=== PATIENT | male | born 1965 | race Caucasian/White ===

== ENCOUNTER 2019-08-11 17:35 | Observation (INO) ==
--- OUTSIDE RECORDS SUMMARY | 2019-08-11 17:37 | External Medical Summary | Continuity of Care Document ---
:1965 Author Name aPrk Almendarez Address Unavailable Unavailable , Care Team Providers Name Role Phone Unavailable Unavailable Unavailable Moustapha Almendarez, IDaxa Unavailable [email or web address] TALORENRobin Unavailable Unavailable Unavailable Unavailable Unavailable Problems Ureteral stone (592.1) (N20.1) Bilateral kidney stones (592.0) (N20.0) Esophageal reflux (530.81) (K21.9) Hypertension (401.9) (I10) Allergies and Adverse Reactions No Known Drug Allergies (Allergy) Medications Cetirizine HCl Erickson DICKENS Refills: 0 Lisinopril 20 MG Oral Tablet , M.D. Refills: 0 Omeprazole 20 MG Oral Tablet Delayed Release , M.DDaxa Refills: 0 oxyCODONE-Acetaminophen 5-325 MG Oral Tablet , M.D. Refills: 0 Potassium Citrate ER 10 MEQ (1080 MG) Or al Tablet Extended Release; TAKE 1 TABLET TWICE DAILY. Erickson Gerard I. Start: 19-Mar-2012 Quantity: 60 Refills: 11 Tamsulosin HCl - 0.4 MG Oral Capsule; TAKE 1 CAPSULE B edErickson Walter I. Start: 19-Mar-2012 Quantity: 30 Refills: 2 Procedures History of Diagnostic Esophagogastroduodenoscopy Status: Completed History of Cystoscopy With Ureteroscopy With Manipulation Of Status: Completed Calculus Immunizations Immunizations not documented Family History Unknown Family Member Family history of Heart Disease (V17.49) Status: Active Comments: Family History Family history of Hypertension (V17.49) Status: Active Comments: Family History Social History - Smoking Status Never smoker Plan of Treatment Planned Observations Planned Goals not documented Results No Known Results Results not documented
--- OUTSIDE RECORDS SUMMARY | 2019-08-11 17:38 | External Medical Summary | Continuity of Care Document ---
:1965 Author Name Park Almendarez Address Unavailable Unavailable , Care Team Providers Name Role Phone Unavailable Unavailable Unavailable Moustapha Almendarez, IDaxa Unavailable [email or web address] TALORENRobin Unavailable Unavailable Unavailable Unavailable Unavailable Problems Hypertension (401.9) (I10) Esophageal reflux (530.81) (K21.9) Bilateral kidney stones (592.0) (N20.0) Ureteral stone (592.1) (N20.1) Allergies and Adverse Reactions No Known Drug Allergies (Allergy) Medications Cetirizine HCl Erickson DICKENS Refills: 0 Lisinopril 20 MG Oral Tablet , M.D. Refills: 0 Omeprazole 20 MG Oral Tablet Delayed Release , M.DDaxa Refills: 0 oxyCODONE-Acetaminophen 5-325 MG Oral Tablet , M.D. Refills: 0 Tamsulosin HCl - 0.4 MG Oral Capsule; TAKE 1 CAPSULE B emytime Erickson Gerard I. Start: 19-Mar-2012 Quantity: 30 Refills: 2 Potassium Citrate ER 10 MEQ (1080 MG) Or al Tablet Extended Release; TAKE 1 TABLET TWICE DAILY. Erickson Gerard I. Start: 19-Mar-2012 Quantity: 60 Refills: 11 Procedures History of Diagnostic Esophagogastroduodenoscopy Status: Completed [...]
[2019-08-11] MEDS ORDERED: KETOROLAC 30 MG/ML VIAL IV ONE (19:45)
[2019-08-11] MEDS ORDERED: MoRPHine SULFATE 4 MG/ML 1 ML CARP\\VIAL IV STA (19:45)
--- NOTE | 2019-08-11 20:10 | XRay Report ---
SINGLE VIEW CHEST CLINICAL HISTORY: Atypical chest pain. FINDINGS: An AP, portable, upright chest radiograph is compared to study dated 03/20/2012. The examina tion is degraded by portable technique and patient rotation. The heart is top normal for projection. The mediastinal contour is within normal limits. There is mild bibasilar atelectasis. The lungs and p leural spaces are otherwise clear. No pneumothorax is seen. The bony thorax is grossly intact. IMPRESSION: No active disease in the chest. ACT 112: Negative or not required by law. Electronically signed by: Jimi Eugene M.D. 08/11/2019 8:09 PM
[2019-08-11 20:25] LABS: Basophils # (auto) 0.05 K/uL (0-0.2); Basophils % (auto) 0.9 %; Eosinophils # (auto) 0.14 K/uL (0-0.5); Eosinophils % (auto) 2.5 %; Hematocrit (blood only) 43.4 % (42-52); Hemoglobin 14.8 g/dL (14.0-18.0); Immature Granulocytes # (auto) 0.01 K/uL (0.00-0.02); Immature Granulocytes % (auto) 0.2 %; Lymphocytes # (auto) 1.89 K/uL (1.2-3.4); Mean Corpuscular Hemoglobin 28.2 pg (25-34); Mean Corpuscular Hgb Conc 34.1 g/dL (32-36); Mean Corpuscular Volume 82.8 fL (80-100); Mean Platelet Volume 10.5 fL (7.4-10.4); Monocytes # (auto) 0.48 K/uL (0.11-0.59); Monocytes % (auto) 8.6 %; Neutrophils # (auto) 2.99 K/uL (1.4-6.5); Neutrophils % (auto) 53.8 %; Platelet Count 288 K/uL (130-400); RDW Coefficient of Variation 13.8 % (11.5-14.5); RDW Standard Deviation 41.9 fL (36.4-46.3); Red Blood Count 5.24 M/uL (4.7-6.1); White Blood Count 5.56 K/uL (4.8-10.8)
[2019-08-11 20:46] LABS: Alanine Aminotransferase 33 U/L (12-78); Albumin Level 4.2 gm/dl (3.4-5.0); Aspartate Aminotransferase 23 U/L (15-37); BUN Creatinine Ratio 15.6 (10-20); Blood Urea Nitrogen 16 mg/dl (7-18); Calcium 9.4 mg/dl (8.5-10.1); Carbon Dioxide 26 mmol/L (21-32); Chloride 107 mmol/L (98-107); Creatinine Clr Calc Pharmacy 88.6 ml/min; Est GFR (African American) 94.8; Est GFR (Non-African American) 81.8; Glucose 88 mg/dl (70-99); Lipase 82 U/L (73-393); Potassium 3.5 mmol/L (3.5-5.1); Sodium 139 mmol/L (136-145)
[2019-08-11 20:51] LABS: Albumin Globulin Ratio 1.1 (0.9-2); Alkaline Phosphatase 69 U/L (45-117); Bilirubin,Total 0.4 mg/dl (0.2-1); Globulin 3.9 gm/dl (2.5-4.0); Total Protein 8.1 gm/dl (6.4-8.2); Troponin I < 0.015 ng/ml (0-0.045)
--- NOTE | 2019-08-11 20:54 | XRay Report ---
CERVICAL SPINE 3 VIEWS CLINICAL HISTORY: Cervicalgia. FINDINGS: AP, lateral, and odontoid views of the cervical spine are obtained. No prior studies are av ailable for comparison at the time of dictation. The skeletal structures appear osteopenic. There is no radiographic evidence of fracture or subluxation. The odontoid process and lateral masses appear i ntact on the open mouth view. The spinolaminar line is preserved. Vertebral body height and alignment are maintained. There is straightening of the cervical lordosis. The spinous processes appear intact . The intervertebral disc spaces are normal. The prevertebral soft tissues are within normal limits. Visualized apical lung parenchyma appears clear. There is calcification of the nuchal ligament. IMPRESSION: No acute bony abnormality is seen involving the cervical spine. ACT 112: Negative or not required by law. Electronically signed by: Jimi Eugene M.D. 08/11/2019 8:53 PM
[2019-08-11] MEDS ORDERED: DIAZEPAM 5 MG/ML INJ 10ML VIAL IV STA (21:03)
[2019-08-11] MEDS ORDERED: HydrALAZINE HCL 20 MG/ML VIAL IV STA (21:20)
[2019-08-11] MEDS ORDERED: LABETALOL HCL IV 5 MG/ML 20ML IV PRN (23:15)
[2019-08-11] MEDS ORDERED: ACETAMINOPHEN 325 MG TAB PO PRN (23:15)
[2019-08-11] MEDS ORDERED: ONDANSETRON INJ 2 MG/ML 2 ML VIAL IV PRN (23:15)
[2019-08-11] MEDS ORDERED: NITROGLYCERIN SL 0.4 MG/TAB TAB SL PRN (23:15)
[2019-08-11] MEDS ORDERED: lisinopriL 10 MG TAB PO STA (23:15)
--- NOTE | 2019-08-11 23:25 | Emergency Department Note ---
Entered by Naveed Yao acting as a scribe for History of Present Illness General Chief complaint: Hypertension Stated complaint: NECK PAIN, HIGH BP Source: patient History of Present Illness Provider complaint: Neck pain Onset (ago): hour(s) greater than 10 Location: neck and left Radiation: non-radiation Pain Consistency: + other (Worsening) Maximum Pain Intensity: 5 Current Pain Intensity: 5 Relieved By: + none Exacerbated By: + movement Associated symptoms: + denies other symptoms (Numbness); no chest pain, no shortness of breath and no weakness The patient is a 54 year old male w/ PMHx of HTN who presents to the ED w/ CC of worsening left sided neck pain that started this morning around 07:00. The patient rates the pain as a 5/10 and notes it is worse when he moves his head or when it spasms. The patient has tried icing the area with no success. The patient adds that he also has right sided shoulder and chest pain that is worse when his left side spasms. He attributed the pain on the right side to compensating for his left sided pain and he notes it feels musculoskeletal. This right sided pain started around 14:00. The patient describes the left sided pain as sharp and the right sided pain as more of a discomfort. The patient states he saw his PCP earlier today and was sent here for an elevated blood pressure. The patient denies any weakness, numbness, fevers or abdominal pain. Home Medications Home Medications Medication Instructions Recorded Confirmed Type omeprazole magnesium [Prilosec OTC] 20 mg PO QAM 08/11/19 08/11/19 History Allergies Allergy/AdvReac Type Severity Reaction Status Date / Time No Known Allergies Allergy Verified 08/11/19 20:50 Past Med/Surg History Medical History Hypertension Family History Other No pertinent family history in first degree relatives Social History Feels Safe at Home: Yes Smoking Status: Never smoker Review of Systems See HPI for pertinent positives & negatives. and A total of 10 systems reviewed and were otherwise negative Physical Exam Vital Signs Vital Signs - 24 hr 08/11/19 17:55 08/11/19 19:56 08/11/19 20:42 Temperature 36.9 C Temperature Source Oral Pulse Rate 78 Pulse Rate [Apical] 69 71 Pulse Rate from SpO2 Sensor Respiratory Rate 18 11 L 17 Respiratory Effort / Characteristics Non-Labored Non-Labored Spontaneous Respiratory Depth Normal Normal Respiratory Pattern Regular Blood Pressure 231/130 H Blood Pressure [Left Arm] 209/131 H 216/126 H Blood Pressure Mean 163 Blood Pressure Mean [Left Arm] 157 156 Pulse Oximetry 98 96 97 Oxygen Delivery Method Room Air Room Air Sepsis Recent Fever Within 48 Hours No Sepsis New/Unexplained Change in Mental Status No Sepsis Action Taken by Nursing No Action Required 08/11/19 21:00 08/11/19 21:30 08/11/19 22:00 Temperature Temperature Source Pulse Rate 65 79 77 Pulse Rate [Apical] Pulse Rate from SpO2 Sensor 65 79 78 Respiratory Rate 21 23 21 Respiratory Effort / Characteristics Respiratory Depth Respiratory Pattern Blood Pressure 205/130 H 196/144 H 211/121 H Blood Pressure [Left Arm] Blood Pressure Mean 159 158 150 Blood Pressure Mean [Left Arm] Pulse Oximetry 94 95 98 Oxygen Delivery Method Room Air Room Air Sepsis Recent Fever Within 48 Hours Sepsis New/Unexplained Change in Mental Status Sepsis Action Taken by Nursing GENERAL: Sitting up in bed with head rotated and tilted to the right, alert, well appearing, well nourished, moderate distress, non-toxic EYE EXAM: normal conjunctiva. OROPHARYNX: no exudate, no erythema, lips, buccal mucosa, and tongue normal and mucous membranes are moist NECK: supple, no nuchal rigidity, no adenopathy, acute reproducible tenderness tracking down the left lateral trapezius. Significant pain with axial rotation to the left/right or tilting of head to the left or right. LUNGS: Clear to auscultation. Normal chest wall mechanics HEART: no murmurs, S1 normal and S2 normal ABDOMEN: abdomen soft, non-tender, normo-active bowel, sounds, no masses, no rebound or guarding. BACK: Back is symmetrical on inspection and there is no deformity, no midline tenderness, no CVA tenderness. SKIN: no rashes and no bruising UPPER EXTREMITIES: upper extremities are grossly normal. Flexion and extension of the shoulder, elbow, wrist, and grasp is 5/5 bilaterally. LOWER EXTREMITIES: No pitting edema. NEURO EXAM: Normal sensorium, cranial nerves II-XII grossly intact, normal speech, no gross weakness of arms. Course Course ED COURSE: Vital signs were reviewed and showed hypertension. The patients medical record was reviewed The above diagnostic studies were performed and reviewed. ED treatments and interventions as stated above. 1933: The patient was evaluated in room C02B. A complete history and physical examination was performed. 2048: Upon reevaluation, the patient is resting in bed. I discussed my findings with the patient and he understands and agrees with the treatment plan. 2119: I spoke to Dr. Terence Jennings about the patient's case and he agreed to accept the patient for further evaluation. Based on the patients age, coexisting illnesses, exam and lab findings the decision to treat as an inpatient was made. The patient remained stable while under my care. The patient will be evaluated for further management. Consultations Consultation #1: I spoke to Dr. Terence Jennings about the patient's case and he agreed to accept the patient for further evaluation. Time: 21:20 Administered Medications Discontinued Medications Diazepam (Valium) 5 mg IV NOW STA Stop: 08/11/19 21:04 Last Admin: 08/11/19 21:24 Dose: 5 mg Documented by: [id number] Hydralazine HCl (Hydralazine Hcl) 10 mg IV NOW STA Stop: 08/11/19 21:21 Last Admin: 08/11/19 21:27 Dose: 10 mg Documented by: [id number] Ketorolac Tromethamine (Toradol) 30 mg IV NOW ONE Stop: 08/11/19 19:46 Last Admin: 08/11/19 20:09 Dose: 30 mg Documented by: [id number] Morphine Sulfate (Morphine Sulfate) 4 mg IV NOW STA Stop: 08/11/19 19:46 Last Admin: 08/11/19 20:10 Dose: 4 mg Documented by: [id number] Medical Decision Making Differential Diagnosis Differential diagnoses includes but is not limited to acute coronary syndrome, myocardial infarction, pericarditis, pulmonary embolus, aortic dissection, pneumonia, pneumothorax, musculoskeletal, shingles, esophageal. Medical Records Attestation: I reviewed the patient's medical records. Home Medications Current Medication List: was personally reviewed by me Laboratory Data Attestation: I reviewed the patient's lab results. Result diagrams: 08/11/19 20:08 08/11/19 20:08 Lab Results 08/11/19 08/11/19 Range/Units 20:08 20:08 WBC 5.56 (4.8-10.8) K/uL RBC 5.24 (4.7-6.1) M/uL Hgb 14.8 (14.0-18.0) g/dL Hct 43.4 (42-52) % MCV 82.8 (80-100) fL MCH 28.2 (25-34) pg MCHC 34.1 (32-36) g/dL RDW Std Deviation 41.9 (36.4-46.3) fL RDW Coeff of Jayjay 13.8 (11.5-14.5) % Plt Count 288 (130-400) K/uL MPV 10.5 H (7.4-10.4) fL Immature Gran % (Auto) 0.2 % Neut % (Auto) 53.8 % Lymph % (Auto) 34.0 % Pepin % (Auto) 8.6 % Eos % (Auto) 2.5 % Baso % (Auto) 0.9 % Immature Gran # (Auto) 0.01 (0.00-0.02) K/uL Neut # (Auto) 2.99 (1.4-6.5) K/uL Lymph # (Auto) 1.89 (1.2-3.4) K/uL Pepin # (Auto) 0.48 (0.11-0.59) K/uL Eos # (Auto) 0.14 (0-0.5) K/uL Baso # (Auto) 0.05 (0-0.2) K/uL Sodium 139 (136-145) mmol/L Potassium 3.5 (3.5-5.1) mmol/L Chloride 107 (98-107) mmol/L Carbon Dioxide 26 (21-32) mmol/L Anion Gap 6.0 (3-11) BUN 16 (7-18) mg/dl Creatinine 1.02 (0.6-1.4) mg/dl Est Cr Clr Drug Dosing 88.6 ml/min Est GFR ( Amer) 94.8 Est GFR (Non-Af Amer) 81.8 BUN/Creatinine Ratio 15.6 (10-20) Glucose 88 (70-99) mg/dl Calcium 9.4 (8.5-10.1) mg/dl Total Bilirubin 0.4 (0.2-1) mg/dl AST 23 (15-37) U/L ALT 33 (12-78) U/L Alkaline Phosphatase 69 (45-117) U/L Troponin I < 0.015 (0-0.045) ng/ml Total Protein 8.1 (6.4-8.2) gm/dl Albumin 4.2 (3.4-5.0) gm/dl Globulin 3.9 (2.5-4.0) gm/dl Albumin/Globulin Ratio 1.1 (0.9-2) Lipase 82 (73-393) U/L Imaging Data Radiologist's Impression: Radiology results as stated below per my review and the radiologist's interpretation: CERVICAL SPINE 3 VIEWS CLINICAL HISTORY: Cervicalgia. FINDINGS: AP, lateral, and odontoid views of the cervical spine are obtained. No prior studies are available for comparison at the time of dictation. The skeletal structures appear osteopenic. There is no radiographic evidence of fracture or subluxation. The odontoid process and lateral masses appear intact on the open mouth view. The spinolaminar line is preserved. Vertebral body height and alignment are maintained. There is straightening of the cervical lordosis. The spinous processes appear intact. The intervertebral disc spaces are normal. The prevertebral soft tissues are within normal limits. Visualized apical lung parenchyma appears clear. There is calcification of the nuchal ligament. IMPRESSION: No acute bony abnormality is seen involving the cervical spine. ACT 112: Negative or not required by law. Electronically signed by: Jimi Eugene M.D. 08/11/2019 8:53 PM SINGLE VIEW CHEST CLINICAL HISTORY: Atypical chest pain. FINDINGS: An AP, portable, upright chest radiograph is compared to study dated 03/20/2012. The examination is degraded by portable technique and patient rotation. The heart is top normal for projection. The mediastinal contour is within normal limits. There is mild bibasilar atelectasis. The lungs and pleural spaces are otherwise clear. No pneumothorax is seen. The bony thorax is grossly intact. IMPRESSION: No active disease in the chest. ACT 112: Negative or not required by law. Electronically signed by: Jimi Eugene M.D. 08/11/2019 8:09 PM ECG Data Attestation: I personally reviewed and interpreted this ECG as follows: Indication: + chest pain Rate (beats per minute): 70 Rhythm: + sinus rhythm ECG [place]: + Normal ECG Findings: + LVH; no PVCs Blood Pressure Blood Pressure Findings: Elevated blood pressure Blood Pressure Disposition: further management by hospitalist FADIA Narrative Patient is a 54-year-old male who presents the ER referred in by PCP for left- sided neck pain along with right-sided chest pain. Upon presentation is found to be hypertensive with systolic blood pressures in the 230s. He was referred in for this associated with chest pain. IV was established blood work was obtained and showed no significant leukocytosis or anemia. BMP along with LFTs bilirubin and troponin was negative. Lipase was normal. Chest x-ray along with x-ray of the cervical spine was unremarkable. Patient was given IV fluids and IV morphine along with IV Toradol. Patient had significant improvement of his pain. Systolic blood pressures trended down to 200. On reevaluation he notes his pain is no longer present less he moves his head and is able to straighten it up. I do believe that this is musculoskeletal in nature. Did order Valium. Patient remained persistently hypertensive was given hydralazine. EKG shows no signs of acute ischemia but LVH. Discussed with the hospitalist for observa tion. Patient was updated bedside. Impression & Plan Chest pain, Hypertensive urgency, Torticollis Discharge Plan Visit Data Chief Complaint: Hypertension Stated Complaint: NECK PAIN, HIGH BP ED Provider: Dipak Reis Discharge Problem: Chest pain, Hypertensive urgency, Torticollis Patient Disposition: Being Evaluated by Hospitalist Discharge Instructions Interventions: ED Discharge Assessment Last Done: 08/11/19 23:02 Discharge Problem: Chest pain Qualifiers: Chest pain type: unspecified Qualified Code(s): R07.9 - Chest pain, unspecified The scribe's documentation has been prepared under my direction and personally reviewed by me in its entirety. I confirm that the note above accurately reflects all work, treatment, procedures, and medical decision making performed by me.
--- NOTE | 2019-08-12 00:45 | History and Physical Report ---
DATE OF ADMISSION: 08/11/2019 CHIEF COMPLAINT: Hypertensive urgency. HISTORY OF PRESENT ILLNESS: This is a 54-year-old male with past medical history significant for hyperlipidemia, impaired fasting glucose, GERD, history of hypertension, but not taking medications currently. The patient says he was diagnosed with high blood pressure in early 40s. 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 Recently, he went to full-time job and again he gained some weight and he was having some neck pain. He went to see his family doctor and found systolic blood pressure is 230s and advised to come to the ER. In the ER, he also does have some chest discomfort, mild, received morphine, hydralazine. Currently resting comfortably and hemodynamically stable. Denies any shortness of breath,. Occasionally has cough. Lately, he noticed some headaches. No blurred visions. No earache, no runny nose, no sore throat, no difficulty swallowing. Appetite is okay. No nausea, no vomiting, no abdominal pain. Normal bowel and bladder movements. No hematuria or blood in the stools currently. No swelling in the legs, no rash seen. He says he was treated with lisinopril before, used to take 20 mg and then it was cut back to 10 mg. ALLERGIES: No known drug allergies. PAST MEDICAL HISTORY: As mentioned above. PAST SURGICAL HISTORY: Dental surgery, lithotripsy, removal of kidney stone. MEDICATIONS: Currently on omeprazole 20 mg p.o. daily. FAMILY HISTORY: Significant for father had probable lung cancer, heart disorder, hypertension. Mother has hypertension. SOCIAL HISTORY: Single. No smoking, no alcohol, no drug use. REVIEW OF SYSTEMS: As per HPI. Rest of the review of systems negative. PHYSICAL EXAMINATION: GENERAL: The patient is of moderate build, not in acute distress. VITAL SIGNS: Temperature 36.9, pulse 77, respiratory rate 21, blood pressure when he came in was 230/130, currently 211/121, oxygen 98% on room air. HEENT: No pallor, no icterus. Pupils equal, round, reactive to light. NECK: No JVD, no neck masses or carotid bruit. CARDIOVASCULAR: S1, S2 heard, regular rate and rhythm, no murmur, no gallop. RESPIRATORY SYSTEM: Normal AP diameter. No accessory muscle use. No wheezing, no crackles. ABDOMEN: Soft, bowel sounds present, nontender. No distention. CENTRAL NERVOUS SYSTEM: Cranial nerves II-XII grossly intact. Nonfocal. EXTREMITIES: No edema, no erythema. LABORATORY DATA: WBC 5.5, hemoglobin 14.8, hematocrit 43.4, platelets 288. Sodium 139, potassium 3.5, chloride 107, bicarbonate 26, BUN 16, creatinine 1.02, serum glucose 88, calcium 9.4, total bilirubin 0.4, AST 23, ALT 33, alkaline phosphatase 69. Troponin I less than 0.015. Lipase 82. IMAGING DATA: Chest x-ray, no active disease in the chest. Cervical spine x-ray, no acute abnormality seen. EKG: Normal sinus rhythm, rate of 70. Voltage criteria for left ventricular hypertrophy seen. No acute ST changes seen. ASSESSMENT AND PLAN: This is a 54-year-old male who presented with neck pain to PCP office and found to be in hypertensive urgency. Advised to come to the ER. In the ER, he also had some chest discomfort. 1. Hypertensive urgency. He was diagnosed with high blood pressure in his early 40s. 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 He received IV hydralazine in the ER. He used to be on lisinopril before, we will start with lisinopril 10 mg, place him on IV labetalol p.r.n. Also EKG is showing LVH. We will get an echocardiogram. Closely monitor in the med/surg tele. 2. Chest pain probably from above. We will check serial cardiac enzymes, echocardiogram because of EKG changes, and his chest pain will consult Cardiology for further recommendations. 3. Gastroesophageal reflux disease. Will continue PPI. 4. History of borderline diabetes. We will check his HbA1c levels, currently n.p.o. 5. Deep venous thrombosis prophylaxis, sequential compression devices. 6. Disposition: Observe in med/surg tele. Level 1 full code. MTDD
[2019-08-12 05:52] LABS: Basophils # (auto) 0.03 K/uL (0-0.2); Basophils % (auto) 0.7 %; Eosinophils # (auto) 0.17 K/uL (0-0.5); Eosinophils % (auto) 3.8 %; Hematocrit (blood only) 41.3 % (42-52); Hemoglobin 13.9 g/dL (14.0-18.0); Immature Granulocytes # (auto) 0.01 K/uL (0.00-0.02); Immature Granulocytes % (auto) 0.2 %; Lymphocytes # (auto) 1.51 K/uL (1.2-3.4); Lymphocytes % (auto) 34.2 %; Mean Corpuscular Hemoglobin 28.2 pg (25-34); Mean Corpuscular Hgb Conc 33.7 g/dL (32-36); Mean Corpuscular Volume 83.8 fL (80-100); Mean Platelet Volume 10.5 fL (7.4-10.4); Monocytes # (auto) 0.47 K/uL (0.11-0.59); Monocytes % (auto) 10.6 %; Neutrophils # (auto) 2.23 K/uL (1.4-6.5); Neutrophils % (auto) 50.5 %; Platelet Count 248 K/uL (130-400); RDW Coefficient of Variation 14.1 % (11.5-14.5); Red Blood Count 4.93 M/uL (4.7-6.1); White Blood Count 4.42 K/uL (4.8-10.8)
[2019-08-12 06:08] LABS: BUN Creatinine Ratio 14.8 (10-20); Calcium 8.9 mg/dl (8.5-10.1); Creatinine Clr Calc Pharmacy 101.6 ml/min; Est GFR (African American) 110.8; Est GFR (Non-African American) 95.6; Magnesium 2.1 mg/dl (1.8-2.4); Potassium 3.4 mmol/L (3.5-5.1)
[2019-08-12] MEDS ORDERED: POTASSIUM CHLORIDE 20 MEQ TABCR PO STA ×2 (06:22→12:49)
[2019-08-12 06:26] LABS: Chol HDL Ratio 4; Cholesterol 158 mg/dl (0-200); HDL Cholesterol 37 mg/dl; LDL Cholesterol Calculated 106 mg/dl; Triglycerides 76 mg/dl (0-150); VLDL Cholesterol 15 mg/dl
[2019-08-12 06:47] LABS: Estimated Average Glucose 117 mg/dl; Hemoglobin A1C 5.7 % (4.5-5.6)
[2019-08-12] MEDS ORDERED: PERFLUTREN LIPID MICROSPHERE (DEFINITY) IV ONE (08:53)
[2019-08-12] MEDS ORDERED: lisinopriL 10 MG TAB PO SCH (09:00)
[2019-08-12] MEDS: ASPIRIN 81 MG ECTAB PO SCH (09:20)
[2019-08-12] MEDS: PANTOprazole 40 MG TAB PO SCH (09:22)
--- NOTE | 2019-08-12 10:16 | Cardiology Consultation ---
Date of Consultation August 12, 2019 Assessment & Plan (1) Hypertensive urgency: Patient is a 54-year-old male with longstanding hypertension currently off medications as noted above. Presents for routine evaluation of neck pain and found to have marked hypertension evidence of hypertensive urgency. Recommendations as per JNC guidelines would warrant at least 2 drug intervention as initial therapy of blood pressure systolic greater than 200 mmHg. Would recommend urinalysis to exclude renal pathology Echocardiogram will be reviewed with preliminary images demonstrating left hypertrophy preserved LV function Lisinopril be continued at 10 mg twice per day with carvedilol added to regimen. Patient may warrant third drug depending on clinical response Currently asymptomatic History of Present Illness Reason for Consultation: Hypertensive urgency Requesting Physician: Dr Pratt Attending Physician: Chris Natarajan MD History of Present Illness Patient is a 54-year-old male who carries an underlying history of past hypertension of greater than 15 years duration currently off medications due to a lapse in insurance coverage and medications. He noted symptoms of neck pain and sharp neck discomfort and presented to primary care physician for evaluation which time he was found to be markedly hypertensive systolic blood pressures greater than 220. He has been referred for evaluation as an inpatient. Since admission he is received IV morphine and Toradol with relief of neck pain. Hypertension has been treated with lisinopril 10 mg x 2 tablets and single dose of IV hydralazine. Blood pressure remains elevated though patient asymptomatic. Denies prior history of cardiac disease exertional chest pains, tachypalpitations, syncope, near syncope. Notes no fevers chills unexplained infections. Notes no bleeding difficulties. Notes no melena medication dysuria hematuria. Has had a history of prior renal lithiasis but no prior history of acute renal dysfunction. Appetite and weight have been generally good with weight trending downward. He is moderately active about home and job but no distinct exercise pattern. No difficulty swallowing. No acute neurologic complaints but occasional headaches have been noted. No acute respiratory distress. Allergies Allergy/AdvReac Type Severity Reaction Status Date / Time No Known Allergies Allergy Verified 08/11/19 20:50 Home Medications Home Medications Medication Instructions Recorded Confirmed Type omeprazole magnesium [Prilosec OTC] 20 mg PO QAM 08/11/19 08/11/19 History aspirin [Ecotrin Low Strength] 81 mg PO QAM 30 Days #30 tab 08/13/19 Rx atorvastatin 10 mg PO QAM 30 Days #30 tab 08/13/19 Rx carvedilol 6.25 mg PO BID17 30 Days #30 tab 08/13/19 Rx lisinopril 10 mg PO BID 30 Days #60 tab 08/13/19 Rx Patient History Medical History Hypertension Family History Other No pertinent family history in first degree relatives Social History Preferred Language: Qatari Communication Ability: Effective Beliefs That Will Affect Care: None Current Living Situation: Family Current Living Situation Comment: Mother, sister and sister's fiance Feels Safe at Home: Yes Safety Concerns: Feels Safe At This Time Smoking Status: Never smoker Hx Alcohol Use: No Hx Substance Use: No Review of Systems Review of Systems: All systems reviewed & are unremarkable except as noted in HPI & below Physical Exam Constitutional: WD/WN, vitals as above Eyes: PERRL, conjunctivae normal, anicteric sclerae ENMT: external ear and nose normal, oropharynx normal Neck: trachea midline, no thyromegaly Respiratory: normal respiratory effort, lungs clear to auscultation Cardiovascular: Rate/Rhythm: regular rate and regular rhythm Heart Sounds: normal S1 and normal S2; no gallop and no murmur Palpation: normal PMI Vessels: normal carotid upstroke and radial pulses present; no JVD and no carotid bruit Extremities: no edema Gastrointestinal (Abdomen): normal bowel sounds, soft, nontender, no hepatosplenomegaly Musculoskeletal: no cyanosis or clubbing, extremities motor strength 5/5 Skin: no rashes, warm and dry Neurologic: PERRL, EOMI, accommodation nl, no face palsy, no dysarthria Psychiatric: A+Ox3, euthymic affect Results & Data Vital Signs (Past 12 Hours) Vital Signs Temp Pulse Pulse Resp BP BP Pulse Ox 08/12/19 07:48 36.7 C 72 16 183/101 H 96 08/12/19 04:00 36.8 C 84 20 172/110 H 97 08/12/19 01:41 68 189/109 H 08/12/19 00:56 67 195/118 H 08/11/19 23:16 36.7 C 77 16 217/131 H 221/119 H 97 08/11/19 22:47 75 22 198/123 H 97 Laboratory Results Laboratory Results - last 24 hr 08/11/19 08/11/19 08/11/19 20:08 20:08 23:36 WBC 5.56 RBC 5.24 Hgb 14.8 Hct 43.4 MCV 82.8 MCH 28.2 MCHC 34.1 RDW Std Deviation 41.9 RDW Coeff of Jayjay 13.8 Plt Count 288 MPV 10.5 H Immature Gran % (Auto) 0.2 Neut % (Auto) 53.8 Lymph % (Auto) 34.0 [place] % (Auto) 8.6 Eos % (Auto) 2.5 Baso % (Auto) 0.9 Immature Gran # (Auto) 0.01 Neut # (Auto) 2.99 Lymph # (Auto) 1.89 [place] # (Auto) 0.48 Eos # (Auto) 0.14 Baso # (Auto) 0.05 Sodium 139 Potassium 3.5 Chloride 107 Carbon Dioxide 26 Anion Gap 6.0 BUN 16 Creatinine 1.02 Est Cr Clr Drug Dosing 88.6 Est GFR ( Amer) 94.8 Est GFR (Non-Af Amer) 81.8 BUN/Creatinine Ratio 15.6 Glucose 88 Estimat Average Glucose Hemoglobin A1c Calcium 9.4 Magnesium Total Bilirubin 0.4 AST 23 ALT 33 Alkaline Phosphatase 69 Troponin I < 0.015 < 0.015 Total Protein 8.1 Albumin 4.2 Globulin 3.9 Albumin/Globulin Ratio 1.1 Triglycerides Cholesterol LDL Cholesterol, Calc VLDL Cholesterol, Calc HDL Cholesterol Cholesterol/HDL Ratio Lipase 82 08/12/19 08/12/19 08/12/19 05:24 05:24 05:24 WBC 4.42 L RBC 4.93 Hgb 13.9 L Hct 41.3 L MCV 83.8 MCH 28.2 MCHC 33.7 RDW Std Deviation 43.0 RDW Coeff of Jayjay 14.1 Plt Count 248 MPV 10.5 H Immature Gran % (Auto) 0.2 Neut % (Auto) 50.5 Lymph % (Auto) 34.2 [place] % (Auto) 10.6 Eos % (Auto) 3.8 Baso % (Auto) 0.7 Immature Gran # (Auto) 0.01 Neut # (Auto) 2.23 Lymph # (Auto) 1.51 [place] # (Auto) 0.47 Eos # (Auto) 0.17 Baso # (Auto) 0.03 Sodium 138 Potassium 3.4 L Chloride 107 Carbon Dioxide 27 Anion Gap 4.0 BUN 13 Creatinine 0.89 Est Cr Clr Drug Dosing 101.6 Est GFR ( Amer) 110.8 Est GFR (Non-Af Amer) 95.6 BUN/Creatinine Ratio 14.8 Glucose 96 Estimat Average Glucose Hemoglobin A1c Calcium 8.9 Magnesium 2.1 Total Bilirubin AST ALT Alkaline Phosphatase Troponin I Total Protein Albumin Globulin Albumin/Globulin Ratio Triglycerides 76 Cholesterol 158 LDL Cholesterol, Calc 106 VLDL Cholesterol, Calc 15 HDL Cholesterol 37 Cholesterol/HDL Ratio 4 Lipase 08/12/19 08/12/19 05:24 05:24 WBC RBC Hgb Hct MCV MCH MCHC RDW Std Deviation RDW Coeff of Jayjay Plt Count MPV Immature Gran % (Auto) Neut % (Auto) Lymph % (Auto) [place] % (Auto) Eos % (Auto) Baso % (Auto) Immature Gran # (Auto) Neut # (Auto) Lymph # (Auto) [place] # (Auto) Eos # (Auto) Baso # (Auto) Sodium Potassium Chloride Carbon Dioxide Anion Gap BUN Creatinine Est Cr Clr Drug Dosing Est GFR ( Amer) Est GFR (Non-Af Amer) BUN/Creatinine Ratio Glucose Estimat Average Glucose 117 Hemoglobin A1c 5.7 H Calcium Magnesium Total Bilirubin AST ALT Alkaline Phosphatase Troponin I < 0.015 Total Protein Albumin Globulin Albumin/Globulin Ratio Triglycerides Cholesterol LDL Cholesterol, Calc VLDL Cholesterol, Calc HDL Cholesterol Cholesterol/HDL Ratio Lipase Diagnostic Findings EKG 08/11/2019: Normal sinus rhythm with voltage criteria for left hypertrophy no acute ischemic changes
[2019-08-12] MEDS ORDERED: carvediloL 12.5 MG TAB PO ONE (10:24)
--- NOTE | 2019-08-12 11:05 | Electrocardiogram Report ---
Test Reason : Blood Pressure : / mmHG Vent. Rate : 070 BPM Atrial Rate : 070 BPM P-R Int : 150 ms QRS Dur : 092 ms QT Int : 394 ms P-R-T Axes : 042 -07 021 degrees QTc Int : 425 ms Normal sinus rhythm Voltage criteria for left ventricular hypertrophy Abnormal ECG When compared with ECG of 20-MAR-2012 09:28, Voltage criteria for left ventricular hypertrophy now present Otherwise no significant change Confirmed by Mick Dalal ([id number]) on 08/12/2019 11:04:50 AM Referred By: REFERRED SELF Confirmed By:Mick Dalal
--- NOTE | 2019-08-12 11:42 | Electrocardiogram Report ---
Test Reason : Blood Pressure : / mmHG Vent. Rate : 082 BPM Atrial Rate : 082 BPM P-R Int : 150 ms QRS Dur : 096 ms QT Int : 424 ms P-R-T Axes : 052 001 025 degrees QTc Int : 495 ms Normal sinus rhythm Minimal voltage criteria for LVH, may be normal variant ( R in aVL ) Abnormal ECG When compared with ECG of 11-AUG-2019 19:51, No significant change Confirmed by Mick Dalal ([id number]) on 08/12/2019 11:41:41 AM Referred By: REFERRED SELF Confirmed By:Mick Dalal
[2019-08-12] MEDS: LIDOCAINE 5% 1 PATCH TD SCH (14:04)
--- NOTE | 2019-08-12 15:57 | Hospitalist Progress Note ---
Date of Service August 12, 2019 Assessment & Plan (1) Hypertensive urgency: This is a 54-year-old male who presented with neck pain to PCP office and found to be in hypertensive urgency. Advised to come to the ER. In the ER, he also had some chest discomfort. 1. Hypertensive urgency. He was diagnosed with high blood pressure in his early 40s. 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 He received IV hydralazine in the ER. He used to be on lisinopril before, we re-start him on lisinopril 10 mg - IV labetalol p.r.n. Also EKG is showing LVH. We will get an echocardiogram. Closely monitor in the med/surg tele. Cardiology consulted, recommend to add Coreg 2. Chest pain probably from above. We will check serial cardiac enzymes troponin x3 negative Echocardiogram ordered because of EKG changes, and his chest pain. Cardiology consulted for further recommendations. - recommend lisinopril and added coreg - cont. to monitor 3. Gastroesophageal reflux disease. Will continue PPI. 4. History of borderline diabetes. - current HbA1c 5.7% 5. Deep venous thrombosis prophylaxis, sequential compression devices. 6. Disposition: Observe in med/surg tele. Subjective Pt is lying in bed in no acute distress. L neck feels better now. No fever, chills, chest pain, palp. shortness of breath. Also denies any abd. pain, nausea, vomiting. Discussed that he will need BP check at home and keep a log for his PCP, so that BP meds can be further adjusted. Review of Systems Review of Systems: All systems reviewed & are unremarkable except as noted in HPI & below Constitutional: + body aches (L neck now improved); no fever and no chills Respiratory: no cough, no dyspnea and no pain on inspiration Cardiovascular: no chest pain, no palpitations and no edema Gastrointestinal: no abdominal pain, no nausea and no vomiting Physical Exam Physical Exam: GENERAL: middle aged male lying in bed, not in acute distress NECK: No JVD, no neck masses or carotid bruit, mild tenderness to palp. at L side, casie. exacerb. w/ mvmt HEENT: NC/AT, EOMI, PERRL, No pallor, no icterus CARDIOVASCULAR: S1, S2 heard, regular rate and rhythm, no murmur, no gallop. RESPIRATORY SYSTEM: Normal AP diameter. No accessory muscle use. CTAB, No wheezing, no crackles. ABDOMEN: Soft, bowel sounds present, nontender. No distention. CENTRAL NERVOUS SYSTEM: Cranial nerves II-XII grossly intact. Nonfocal. no facial asymmetry, speech fluent, moves all 4 extremities spontaneously EXTREMITIES: No edema, no erythema, moves all 4 extremities spontaneously SKIN: warm, dry, no rashes or lesions Results & Data Vital Signs (Past 12 Hours) Vital Signs Temp Pulse Pulse Pulse Resp BP Pulse Ox 08/12/19 15:28 61 08/12/19 15:02 36.7 C 71 20 165/101 H 95 08/12/19 11:28 37.1 C 76 16 157/103 H 96 08/12/19 07:48 36.7 C 72 16 183/101 H 96 08/12/19 04:00 36.8 C 84 20 172/110 H 97 Laboratory Results 08/12/19 08/12/19 08/12/19 Range/Units 11:21 05:24 05:24 WBC (4.8-10.8) K/uL RBC (4.7-6.1) M/uL Hgb (14.0-18.0) g/dL Hct (42-52) % MCV (80-100) fL MCH (25-34) pg MCHC (32-36) g/dL RDW Std Deviation (36.4-46.3) fL RDW Coeff of Jayjay (11.5-14.5) % Plt Count (130-400) K/uL MPV (7.4-10.4) fL Immature Gran % (Auto) % Neut % (Auto) % Lymph % (Auto) % [place] % (Auto) % Eos % (Auto) % Baso % (Auto) % Immature Gran # (Auto) (0.00-0.02) K/uL Neut # (Auto) (1.4-6.5) K/uL Lymph # (Auto) (1.2-3.4) K/uL [place] # (Auto) (0.11-0.59) K/uL Eos # (Auto) (0-0.5) K/uL Baso # (Auto) (0-0.2) K/uL Sodium (136-145) mmol/L Potassium (3.5-5.1) mmol/L Chloride (98-107) mmol/L Carbon Dioxide (21-32) mmol/L Anion Gap (3-11) BUN (7-18) mg/dl Creatinine (0.6-1.4) mg/dl Est Cr Clr Drug Dosing ml/min Est GFR ( Amer) Est GFR (Non-Af Amer) BUN/Creatinine Ratio (10-20) Glucose (70-99) mg/dl Estimat Average Glucose 117 mg/dl Hemoglobin A1c 5.7 H (4.5-5.6) % Calcium (8.5-10.1) mg/dl Magnesium (1.8-2.4) mg/dl Total Bilirubin (0.2-1) mg/dl AST (15-37) U/L ALT (12-78) U/L Alkaline Phosphatase (45-117) U/L Troponin I < 0.015 < 0.015 (0-0.045) ng/ml Total Protein (6.4-8.2) gm/dl Albumin (3.4-5.0) gm/dl Globulin (2.5-4.0) gm/dl Albumin/Globulin Ratio (0.9-2) Triglycerides (0-150) mg/dl Cholesterol (0-200) mg/dl LDL Cholesterol, Calc mg/dl VLDL Cholesterol, Calc mg/dl HDL Cholesterol mg/dl Cholesterol/HDL Ratio Lipase (73-393) U/L 08/12/19 08/12/19 08/12/19 Range/Units 05:24 05:24 05:24 WBC 4.42 L (4.8-10.8) K/uL RBC 4.93 (4.7-6.1) M/uL Hgb 13.9 L (14.0-18.0) g/dL Hct 41.3 L (42-52) % MCV 83.8 (80-100) fL MCH 28.2 (25-34) pg MCHC 33.7 (32-36) g/dL RDW Std Deviation 43.0 (36.4-46.3) fL RDW Coeff of Jayjay 14.1 (11.5-14.5) % Plt Count 248 (130-400) K/uL MPV 10.5 H (7.4-10.4) fL Immature Gran % (Auto) 0.2 % Neut % (Auto) 50.5 % Lymph % (Auto) 34.2 % [place] % (Auto) 10.6 % Eos % (Auto) 3.8 % Baso % (Auto) 0.7 % Immature Gran # (Auto) 0.01 (0.00-0.02) K/uL Neut # (Auto) 2.23 (1.4-6.5) K/uL Lymph # (Auto) 1.51 (1.2-3.4) K/uL [place] # (Auto) 0.47 (0.11-0.59) K/uL Eos # (Auto) 0.17 (0-0.5) K/uL Baso # (Auto) 0.03 (0-0.2) K/uL Sodium 138 (136-145) mmol/L Potassium 3.4 L (3.5-5.1) mmol/L Chloride 107 (98-107) mmol/L Carbon Dioxide 27 (21-32) mmol/L Anion Gap 4.0 (3-11) BUN 13 (7-18) mg/dl Creatinine 0.89 (0.6-1.4) mg/dl Est Cr Clr Drug Dosing 101.6 ml/min Est GFR ( Amer) 110.8 Est GFR (Non-Af Amer) 95.6 BUN/Creatinine Ratio 14.8 (10-20) Glucose 96 (70-99) mg/dl Estimat Average Glucose mg/dl Hemoglobin A1c (4.5-5.6) % Calcium 8.9 (8.5-10.1) mg/dl Magnesium 2.1 (1.8-2.4) mg/dl Total Bilirubin (0.2-1) mg/dl AST (15-37) U/L ALT (12-78) U/L Alkaline Phosphatase (45-117) U/L Troponin I (0-0.045) ng/ml Total Protein (6.4-8.2) gm/dl Albumin (3.4-5.0) gm/dl Globulin (2.5-4.0) gm/dl Albumin/Globulin Ratio (0.9-2) Triglycerides 76 (0-150) mg/dl Cholesterol 158 (0-200) mg/dl LDL Cholesterol, Calc 106 mg/dl VLDL Cholesterol, Calc 15 mg/dl HDL Cholesterol 37 mg/dl Cholesterol/HDL Ratio 4 Lipase (73-393) U/L 08/11/19 08/11/19 08/11/19 Range/Units 23:36 20:08 20:08 WBC 5.56 (4.8-10.8) K/uL RBC 5.24 (4.7-6.1) M/uL Hgb 14.8 (14.0-18.0) g/dL Hct 43.4 (42-52) % MCV 82.8 (80-100) fL MCH 28.2 (25-34) pg MCHC 34.1 (32-36) g/dL RDW Std Deviation 41.9 (36.4-46.3) fL RDW Coeff of Jayjay 13.8 (11.5-14.5) % Plt Count 288 (130-400) K/uL MPV 10.5 H (7.4-10.4) fL Immature Gran % (Auto) 0.2 % Neut % (Auto) 53.8 % Lymph % (Auto) 34.0 % [place] % (Auto) 8.6 % Eos % (Auto) 2.5 % Baso % (Auto) 0.9 % Immature Gran # (Auto) 0.01 (0.00-0.02) K/uL Neut # (Auto) 2.99 (1.4-6.5) K/uL Lymph # (Auto) 1.89 (1.2-3.4) K/uL [place] # (Auto) 0.48 (0.11-0.59) K/uL Eos # (Auto) 0.14 (0-0.5) K/uL Baso # (Auto) 0.05 (0-0.2) K/uL Sodium 139 (136-145) mmol/L Potassium 3.5 (3.5-5.1) mmol/L Chloride 107 (98-107) mmol/L Carbon Dioxide 26 (21-32) mmol/L Anion Gap 6.0 (3-11) BUN 16 (7-18) mg/dl Creatinine 1.02 (0.6-1.4) mg/dl Est Cr Clr Drug Dosing 88.6 ml/min Est GFR ( Amer) 94.8 Est GFR (Non-Af Amer) 81.8 BUN/Creatinine Ratio 15.6 (10-20) Glucose 88 (70-99) mg/dl Estimat Average Glucose mg/dl Hemoglobin A1c (4.5-5.6) % Calcium 9.4 (8.5-10.1) mg/dl Magnesium (1.8-2.4) mg/dl Total Bilirubin 0.4 (0.2-1) mg/dl AST 23 (15-37) U/L ALT 33 (12-78) U/L Alkaline Phosphatase 69 (45-117) U/L Troponin I < 0.015 < 0.015 (0-0.045) ng/ml Total Protein 8.1 (6.4-8.2) gm/dl Albumin 4.2 (3.4-5.0) gm/dl Globulin 3.9 (2.5-4.0) gm/dl Albumin/Globulin Ratio 1.1 (0.9-2) Triglycerides (0-150) mg/dl Cholesterol (0-200) mg/dl LDL Cholesterol, Calc mg/dl VLDL Cholesterol, Calc mg/dl HDL Cholesterol mg/dl Cholesterol/HDL Ratio Lipase 82 (73-393) U/L Medications Administered Current Inpatient Medications Acetaminophen (Tylenol) 650 mg PO Q4H PRN PRN Reason: Pain or Fever Stop: 09/10/19 23:14 Last Admin: 08/12/19 09:21 Dose: 650 mg Documented by: [facility]ab) [facility] [place] Stop: 09/11/19 08:59 Last Admin: 08/12/19 09:20 Dose: 81 mg Documented by: Carvedilol (Coreg) 6.25 mg PO BID17 [facility] Stop: 09/11/19 16:59 Labetalol HCl (Normodyne) 10 mg IV Q4H PRN PRN Reason: Hypertension Stop: 09/10/19 23:14 Last Admin: 08/12/19 00:30 Dose: 10 mg Documented by: Lidocaine (Lidoderm 5%) 1 [facility] [place] Stop: 09/11/19 12:59 Last Admin: 08/12/19 14:04 Dose: Not Given Documented by: Lisinopril (Zestril) 10 mg PO BID [facility] Stop: 02/14/20 20:59 Miscellaneous (Remove Lidoderm Patch) 1 ea N/A DAILY@2100 [facility] Stop: 09/11/19 20:59 Nitroglycerin (Nitrostat) 0.4 mg SL UD PRN PRN Reason: Chest Pain Stop: 09/10/19 23:14 Ondansetron HCl (Zofran) 4 mg IV Q6H PRN PRN Reason: Nausea Stop: 09/10/19 23:14 Pantoprazole Sodium (Protonix) [facility] [place] Stop: 09/11/19 08:59 Last Admin: 08/12/19 09:22 Dose: 40 mg Documented by:
[2019-08-12] MEDS: carvediloL 6.25 MG TAB PO SCH (17:37)
[2019-08-12] MEDS: lisinopriL 10 MG TAB PO SCH (21:25)
[2019-08-13] MEDS: lisinopriL 10 MG TAB PO SCH (08:15)
[2019-08-13] MEDS: ASPIRIN 81 MG ECTAB PO SCH (08:15)
[2019-08-13] MEDS: LIDOCAINE 5% 1 PATCH TD SCH (08:16)
[2019-08-13] MEDS: PANTOprazole 40 MG TAB PO SCH (08:16)
[2019-08-13] MEDS: carvediloL 6.25 MG TAB PO SCH (08:16)
[2019-08-13] MEDS ORDERED: ATORVASTATIN 10 MG TAB PO ONE (08:58)
--- NOTE | 2019-08-13 10:55 | Discharge Summary ---
Date of Service August 13, 2019 Admission HPI Per Admitting Provider This is a 54-year-old male with past medical history significant for hyperlipidemia, impaired fasting glucose, GERD, history of hypertension, but not taking medications currently. The patient says he was diagnosed with high blood pressure in early 40s. 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 Recently, he went to full-time job and again he gained some weight and he was having some neck pain. He went to see his family doctor and found systolic blood pressure is 230s and advised to come to the ER. In the ER, he also does have some chest discomfort, mild, received morphine, hydralazine. Currently resting comfortably and hemodynamically stable. Denies any shortness of breath,. Occasionally has cough. Lately, he noticed some headaches. No blurred visions. No earache, no runny nose, no sore throat, no difficulty swallowing. Appetite is okay. No nausea, no vomiting, no abdominal pain. Normal bowel and bladder movements. No hematuria or blood in the stools currently. No swelling in the legs, no rash seen. He says he was treated with lisinopril before, used to take 20 mg and then it was cut back to 10 mg. Admission Exam Per Admitting Provider GENERAL: The patient is of moderate build, not in acute distress. VITAL SIGNS: Temperature 36.9, pulse 77, respiratory rate 21, blood pressure when he came in was 230/130, currently 211/121, oxygen 98% on room air. HEENT: No pallor, no icterus. Pupils equal, round, reactive to light. NECK: No JVD, no neck masses or carotid bruit. CARDIOVASCULAR: S1, S2 heard, regular rate and rhythm, no murmur, no gallop. RESPIRATORY SYSTEM: Normal AP diameter. No accessory muscle use. No wheezing, no crackles. ABDOMEN: Soft, bowel sounds present, nontender. No distention. CENTRAL NERVOUS SYSTEM: Cranial nerves II-XII grossly intact. Nonfocal. EXTREMITIES: No edema, no erythema. Principal Diagnosis Hypertensive urgency, Prediabetes Discharge Exam GENERAL: middle aged male lying in bed, not in acute distress NECK: No JVD, no neck masses or carotid bruit, mild tenderness to palp. at L side, casie. exacerb. w/ mvmt HEENT: NC/AT, EOMI, PERRL, No pallor, no icterus CARDIOVASCULAR: S1, S2 heard, regular rate and rhythm, no murmur, no gallop. RESPIRATORY SYSTEM: Normal AP diameter. No accessory muscle use. CTAB, No wheezing, no crackles. ABDOMEN: Soft, bowel sounds present, nontender. No distention. CENTRAL NERVOUS SYSTEM: Cranial nerves II-XII grossly intact. Nonfocal. no facial asymmetry, speech fluent, moves all 4 extremities spontaneously EXTREMITIES: No edema, no erythema, moves all 4 extremities spontaneously SKIN: warm, dry, no rashes or lesions Discharge Data Allergies Allergy/AdvReac Type Severity Reaction Status Date / Time No Known Allergies Allergy Verified 08/11/19 20:50 Consultations 08/11/19 21:20 ED Decision to Admit Stat 08/11/19 23:15 Consult Case Management - Discharge Planning Routine 08/12/19 08:00 Consult Cardiology Routine Hospital Course (1) Hypertensive urgency: This is a 54-year-old male who presented with neck pain to PCP office and found to be in hypertensive urgency. Advised to come to the ER. In the ER, he also had some chest discomfort. 1. Hypertensive urgency. He was diagnosed with high blood pressure in his early 40s. 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 He received IV hydralazine in the ER. He used to be on lisinopril before, re-started him on lisinopril 10 mg BID - IV labetalol p.r.n. while inpt EKG is showing LVH. Echocardiogram obtained (08/12/2019) showed left ventricle normal in size, moderate concentric LVH, left ventricular wall motion is normal. EF 55 to 60%. Grade 1 diastolic dysfunction. Aortic valve sclerosismild, without significant aortic valvular stenosis. Trace aortic regurg. Aortic root is normal in size. - monitored on tele while inpt, remained in sinus rhythm Cardiology consulted, recommend to add Coreg, patient started on 6.25 twice daily 2. Chest pain probably from above. Serial cardiac enzymes - troponin x3 negative Echocardiogram ordered because of EKG changes, and his chest pain. Cardiology consulted for further recommendations. - recommend lisinopril and added coreg - cont. to monitor 3. Gastroesophageal reflux disease. Will continue PPI. 4. History of borderline diabetes - current HbA1c 5.7% - Prediabetes - encourage healthy diet - follow up with PCP 5. Neck pain/torticollis -Cervical x-ray negative -Now improved Total Time Total Time Spent Total Time Spent (In Minutes): 35 Total Time Includes: Examination of the Patient, Discharge Planning, Medication Reconciliation and Communication With Other Providers Discharge Plan Discharge Items Patient Disposition: Home - Self-Care Reason For Visit: ELEVATED BP Discharge Diagnosis: Hypertensive urgency, Prediabetes Activity: Resume your previous activity Activity Comment: as tolerated, pace yourelf, ask for help as needed Non-emergency contact: Primary Care Provider Call non-emergency contact if: you have any medication questions and your symptoms worsen Follow-up/Referrals: Jeanette Marinelli MD [Primary Care Provider] - 08/20/19 10:05 am Diet: Heart Healthy Addtl Attending Provider Instructions: Take lisinopril 10 mg twice a day. Also take carvedilol/Coreg 6. 25 mg twice a day. Please check your blood pressure at home, and keep a log of your values. Bring the log to your primary care doctor appointment. You are scheduled for follow-up appointment with primary care doctor for August 20, at 10:05 AM. You were also started here on cholesterol medication, atorvastatin, please take it daily as well. For your neck pain, you can use Tylenol 1000 mg every 8 hours. The max dose is 3000 mg a day. You can also use heating pad, or lidocaine patch as needed. Pending Studies at Discharge: No Stand-Alone Forms: My [employer], Smoking Cessation Medications and DC Order Prescriptions: New atorvastatin 10 mg Tablet 10 mg PO QAM 30 Days Qty: 30 RF: 0 carvedilol 6.25 mg Tablet 6.25 mg PO BID17 30 Days Qty: 30 RF: 0 lisinopril 10 mg Tablet 10 mg PO BID 30 Days Qty: 60 RF: 0 aspirin [Ecotrin Low Strength] 81 mg Tablet,Delayed Release (Dr/Ec) 81 mg PO QAM 30 Days Qty: 30 RF: 0 Continued Prilosec OTC 20 mg Tablet,Delayed Release (Dr/Ec) 20 mg PO QAM RF: 0 Discharge Orders: Discharge Order (Routine); Ordered 08/13/19 Ordered By: Chris Natarajan Admission Data Admit Date/Time: 08/11/19 22:12 Attending Provider: Chris Natarajan Admit Provider: Mark Pratt Primary Care Provider: Jeanette Marinelli Other Providers: Mark Pratt ; Rocky Finley ; Jason Alejandro ; Chandan Martinez ; Kvng Reyes ; Darwin Ndiaye ; Isauro Cruz ; Lady Alonzo ; Shannan Gregory ; James Bonner
--- NOTE | 2019-08-13 11:27 | Cardiology Progress Note ---
Date of Service August 13, 2019 Assessment & Plan (1) Hypertensive urgency: Patient is a 54-year-old male with longstanding hypertension currently off medications as noted above. Presents for routine evaluation of neck pain and found to have marked hypertension evidence of hypertensive urgency. Recommendations as per JNC guidelines would warrant at least 2 drug intervention as initial therapy of blood pressure systolic greater than 200 mmHg. Would recommend urinalysis to exclude renal pathology Echocardiogram will be reviewed with preliminary images demonstrating left hypertrophy preserved LV function Lisinopril be continued at 10 mg twice per day with carvedilol 6.25 twice daily added to regimen. Blood pressure improving on above therapies. Will warrant close clinical follow-up with primary care post hospital discharge with room to increase carvedilol possible addition of third agent if no further control Subjective Patient seen and examined, chart, medications, telemetry reviewed. Mild neck tenderness with movement but otherwise doing well. Blood pressures are trending towards better control still mildly elevated. Tolerating medications with patient ambulatory in room Physical Exam Constitutional: WD/WN, vitals as above Eyes: PERRL, conjunctivae normal, anicteric sclerae ENMT: external ear and nose normal, oropharynx normal Neck: trachea midline, no thyromegaly Respiratory: normal respiratory effort, lungs clear to auscultation Cardiovascular: Rate/Rhythm: regular rate and regular rhythm Heart Sounds: normal S1 and normal S2; no gallop and no murmur Palpation: normal PMI Vessels: normal carotid upstroke and radial pulses present; no JVD and no carotid bruit Extremities: no edema Gastrointestinal (Abdomen): normal bowel sounds, soft, nontender, no hepatosplenomegaly Musculoskeletal: no cyanosis or clubbing, extremities motor strength 5/5 Skin: no rashes, warm and dry Neurologic: PERRL, EOMI, accommodation nl, no face palsy, no dysarthria Psychiatric: A+Ox3, euthymic affect Results & Data Vital Signs (Past 12 Hours) Vital Signs Temp Pulse Pulse Pulse Resp BP BP 08/13/19 11:23 36.8 C 78 16 159/96 H 08/13/19 07:30 36.6 C 75 16 159/99 H 08/13/19 07:16 68 08/13/19 04:25 36.9 C 77 18 150/91 H 08/13/19 00:00 65 Pulse Ox 01/16/20 11:23 91 08/13/19 07:30 94 08/13/19 07:16 08/13/19 04:25 95 08/13/19 00:00
[2019-08-13 11:34] LABS: Calcium 8.9 mg/dl (8.5-10.1); Creatinine Clr Calc Pharmacy 83.1 ml/min; Est GFR (African American) 89.5; Est GFR (Non-African American) 77.2
--- NOTE | 2019-08-13 17:22 | Electrocardiogram Report ---
Test Reason : Blood Pressure : / mmHG Vent. Rate : 069 BPM Atrial Rate : 069 BPM P-R Int : 156 ms QRS Dur : 094 ms QT Int : 412 ms P-R-T Axes : 051 -02 025 degrees QTc Int : 441 ms Normal sinus rhythm Minimal voltage criteria for LVH, may be normal variant ( R in aVL ) Borderline ECG When compared with ECG of 12-AUG-2019 07:43, QT has shortened Confirmed by Chris Joseph ([id number]) on 08/13/2019 5:22:25 PM Referred By: REFERRED SELF Confirmed By:Chris Joseph
[2019-08-14] MEDS ORDERED: ATORVASTATIN 10 MG TAB PO SCH (09:00)
== END 2019-08-13 13:23 | disposition home or self-care (01) ==
LOC: 2N 17:35 → ED 17:35 → 2N 23:02